=== PATIENT | female | born 1985 | race African-American/Black ===

== ENCOUNTER 2016-05-07 10:44 | Emergency (ER) | payer OTHER ==
--- NOTE | ~2016-05-07 | CT16 ---
[facility] A Service [facility] RADIOLOGY TEXT RESULTS PATIENT: CAROLE MCKEON LOCATION: [facility] : 83 UNIT #: [id number] AGE: [address]: Abimbola Mix MD SEX: F ORDER DR: [id number] [address] [place], [place] [address] [id number] E MR#: [id number] Acc #: [id number] NAME: CAROLE MCKEON : 1985 SEX: F STUDY DATE/TIME: 05/07/2016 15:04 UNIT: [facility] ROOM: STUDY DESCRIPTION: CT Angio Chest for PE Attending Physician: Abimbola Mix M.D. Ordering Physician: Abimbola Mix M.D. Primary Care Physician: Primary Care Physician No MEDICAL IMAGING REPORT This report is preliminary unless electronic signature is present EXAM CT chest, 05/07/2016 CLINICAL HISTORY Chest pain. Nonproductive cough for [address] angiography of the chest utilizing 80 mL Isovue-370 IV contrast. Coronal 3-D MIP reconstructions and standard sagittal reconstructions were obtained. This CT exam was performed with one or more of the following radiation dose reduction techniques: automatic exposure control, adjustment of mA and/or kV according to patient size, and iterative reconstruction. COMPARISON Chest radiograph dated 05/07/2016. FINDINGS No pulmonary embolus. No thoracic aortic aneurysm or dissection. No pericardial or pleural effusion. There is limited atelectasis in the dependent portions of the lungs, however no acute findings. The central airways are patent. There are no acute osseous abnormalities. There are 3 hypervascular lesions in the liver. The largest hypervascular lesion is in the medial segment left hepatic lobe (segment 4B) measuring 2 cm. Diffusely diminished attenuation suggests background steatosis. IMPRESSION [facility] A Service of [facility] RADIOLOGY TEXT RESULTS PATIENT: CAROLE MCKEON LOCATION: [facility] : 83 UNIT #: [id number] AGE: [address]: Abimbola Mix MD SEX: F ORDER DR: 1. Negative for pulmonary embolus. 2. Minimal atelectasis in the dependent portion of the lungs, otherwise there are no acute findings in the chest. 3. Hypervascular lesions in the left hepatic lobe (3 separate lesions) measuring up to 2.0 cm. Given the patient's young age, these are almost certainly benign lesions such as hepatic adenomas, flash-filling hemangiomas, or areas of focal nodular hyperplasia. Nonemergent hepatic protocol MRI or CT can be utilized to fully characterize. Dictated by... Kiet Anna M.D. THIS IS AN ELECTRONICALLY VERIFIED REPORT Kiet Anna M.D. at 05/08/2016 2:14 PM JOSE/ducnan TD: 05/07/2016 22:46 JOB #: [id number] MEDICAL IMAGING REPORT COPY
--- NOTE | ~2016-05-07 | CR72 ---
[facility] A Service of [facility] RADIOLOGY TEXT RESULTS PATIENT: CAROLE MCKEON LOCATION: [facility] : 83 UNIT #: [id number] AGE: [address]: Abimbola Mix MD SEX: F ORDER DR: [id number] [facility] [address] [place], [place] [address] [id number] E MR#: [id number] Acc #: [id number] NAME: CAROLE MCKEON : 1985 SEX: F STUDY DATE/TIME: 05/07/2016 UNIT: [facility] ROOM: STUDY DESCRIPTION: CR Chest Single View Portable Attending Physician: Abimbola Mix M.D. Ordering Physician: Abimbola Mix M.D. Primary Care Physician: Primary Care Physician No MEDICAL IMAGING REPORT This report is preliminary unless electronic signature is present EXAM Chest portable 05/07/2016 11:04 hours HISTORY 31-year-old woman with 2-day history of chest pain, shortness of air and cough. COMPARISON None. FINDINGS Single upright portable chest film demonstrates normal cardiac, mediastinal and hilar contours. The lungs are well expanded and clear. There is no effusion or pneumothorax. IMPRESSION Normal upright portable chest film. Dictated by... Valencia Lerma M.D. THIS IS AN ELECTRONICALLY VERIFIED REPORT Valencia Lerma M.D. at 05/07/2016 1:34 PM SMM/stu TD: 05/07/2016 12:58 JOB #: [id number] MEDICAL IMAGING REPORT COPY
--- NOTE | ~2016-05-07 | EKG ---
PATIENT: CAROLE MCKEON UNIT #: [id number] Ventricular Rate: 94 BPM Atrial Rate: 94 BPM P-R Interval: 138 ms QRS Duration: 70 ms Q-T Interval: 346 ms QTC Calculation(Bezet): 432 ms P [place]: 54 degrees Calculated R [place]: 15 degrees Calculated T [place]: 33 degrees Diagnosis Line: Normal sinus rhythm Diagnosis Line: Nonspecific T wave abnormality Diagnosis Line: Abnormal ECG Diagnosis Line: No previous ECGs available Diagnosis Line: Confirmed by NOEMÍ DYE MD ([id number]) on Diagnosis Line: 05/07/2016 3:27:46 PM INTERPRETING MD: HARDIK MADISON
[2016-05-07 11:36] LABS: BASOPHIL% 0.3 % (0-2.5); DIFF IND NO; EOSINOPHIL# 0.1 X10e3 (0-0.7); EOSINOPHIL% 1.4 % (0.0-7.0); HEMATOCRIT 43.2 % (35.0-45.0); HEMOGLOBIN 14.4 gm/dL (12.0-16.0); LYMPHOCYTE# 1.6 X10e3 (1.0-3.5); LYMPHOCYTE% 21.8 % (17.0-45.0); MEAN CELL VOLUME 93.6 FL (83-96); MEAN CORPUSCULAR HEMOGLOBIN 31.3 PG (28-34); MEAN CORPUSCULAR HGB CONC 33.4 g/dL (30-36); MEAN PLATELET VOLUME 9.8 FL (6.5-11.5); MONOCYTE# 0.9 X10e3 (0-1.0); NEUTROPHIL# 4.8 X10e3 (1.5-7.1); NEUTROPHIL% 64.5 % (40-75); PLATELET COUNT 203 X10e3 (140-420); RED BLOOD COUNT 4.62 X10e (3.90-5.30); RED CELL DISTRIBUTION WIDTH 12.2 % (11.0-15.5); WHITE BLOOD COUNT 7.4 X10e3 (4.0-10.5)
[2016-05-07 11:41] LABS: INFLUENZA A POS (NEG)
[2016-05-07 11:42] LABS: INFLUENZA B NEG (NEG)
[2016-05-07 12:02] LABS: URINE SOURCE CLEAN CATCH
[2016-05-07 12:09] LABS: ALBUMIN SERUM 4.1 g/dL (3.5-5.0); ALKALINE PHOSPHATASE 80 U/L (32-92); ALT (SGPT) 55 U/L (10-40); AST (SGOT) 38 U/L (10-42); BILIRUBIN, DIRECT 0.1 mg/dL (0.0-0.2); BILIRUBIN,INDIRECT 0.6 mg/dL (0.0-0.9); BILIRUBIN,TOTAL 0.7 mg/dL (0.2-2.0); BLOOD UREA NITROGEN 10 mg/dL (9-23); BUN/CREATININE RATIO 14.28; CALCIUM SERUM 8.9 mg/dL (8.4-10.2); CARBON DIOXIDE 26 mmol/L (22-31); CHLORIDE 101 mmol/L (100-111); CREATININE SERUM 0.7 mg/dL (0.6-1.4); GLOM FILT RATE Estimated ABOVE60 mL/min (>60); GLUCOSE FASTING 131 mg/dL (70-110); POTASSIUM 3.3 mmol/L (3.5-5.1); PROTEIN TOTAL SERUM 7.3 g/dL (6.0-8.3); SODIUM 137 mmol/L (135-145)
[2016-05-07 12:09] LABS: URINE APPEARANCE CLEAR; URINE BILIRUBIN NEG (NEG); URINE BLOOD NEG (NEG); URINE COLOR YELLOW; URINE GLUCOSE NEG (NEG); URINE KETONE NEG (NEG); URINE LEUKOCYTE ESTERASE TRACE (NEG); URINE NITRATE NEG (NEG); URINE PH 7.5 (5-8); URINE PROTEIN NEG (NEG); URINE SPECIFIC GRAVITY 1.028 (1.003-1.035)
[2016-05-07 12:15] LABS: CULTURE INDICATED? YES; URINE BACTERIA AUWI 2+ (NEGATIVE); URINE SQUAMOUS EPITHELIAL CELL FEW /[HPF]
== END 2016-05-07 15:54 | disposition home or self-care (01) ==
LOC: CED 10:44
PROVIDERS: Emergency Medicine
DX: J11.1 Influenza due to unidentified influenza virus with other respiratory manifestations (principal); N39.0 Urinary tract infection, site not specified; J45.909 Unspecified asthma, uncomplicated; Z88.8 Allergy status to other drugs, medicaments and biological substances
CPT/HCPCS: 36415; 71010; 71275; 80048; 80076; 81003; 84703; 85025; 85379; 87086; 87804; 93005; 96374; 99284; J2405; Q9967